=== PATIENT | male | born 1985 | race Caucasian/White ===

== ENCOUNTER 2020-05-16 14:27 | Emergency (ER) | payer SELFPAY ==
[~2020-05-16] VITALS: Ht 180.3 cm; Wt 95.3 kg
[2020-05-16 14:31] VITALS: BP 134/79
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
[2020-05-16 14:57] VITALS: BP 134/79
--- NOTE | 2020-05-16 14:58 | NUR ---
Patient discharged with v/s stable. Written and verbal after care instructions given and explained. Patient verbalized understanding. Ambulatory with steady gait. All questions addressed prior to discharge. Advised to follow up with PMD.
== END 2020-05-16 14:58 | disposition home or self-care (01) ==
LOC: MED 14:27
DX: J32.9 Chronic sinusitis, unspecified (principal)
CPT/HCPCS: 99281